=== PATIENT | female | born 1955 | race Caucasian/White ===

== ENCOUNTER 2017-06-11 18:48 | Emergency (ER) | payer BC, OTHER ==
[2017-06-11 19:04] VITALS: BP 121/70; PULSE 81; TEMP 98.1; BMI 19.1
--- NOTE | 2017-06-11 19:15 | PDOC ---
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 She denies feeling dizzy prior to falling. She denies head trauma or LOC. She reports inverting her right ankle and developing immediate swelling and pain. She reports the pain is sharp, 7/10 and radiating from her lateral ankle up her right lower extremity. She denies taking anything for pain prior to ED arrival. The patient denies chest pain, shortness of breath, headache and dizziness. The patient denies fever, chills, nausea, vomit, diarrhea and constipation. The patient denies dysuria, frequency, urgency and hematuria. PAST MEDICAL HISTORY: no significant history PAST SURGICAL HISTORY: no significant history FAMILY HISTORY: no pertinent history SOCIAL HISTORY: Pt lives with family and is employed. MEDICATIONS: reviewed ALLERGIES: As per nursing notes Adult ROS General: No fevers or chills, no weakness, no weight loss HEENT: No change in vision. No sore throat,. No ear pain CardioVascular: No chest pain or shortness of breath Respiratory:No cough, or wheezing. Gastrointestinal: no nausea, vomiting, diarrhea or constipation, No rectal bleeding Genitourinary: No dysuria, hematuria, or frequency Musculoskeletal: (+) pain to right ankle with bruising and swelling. Neurologic: No headache, vertigo, dizziness or loss of consciousness Psychiatric: nor depression Skin: No rashes or easy bruising Endocrine: no increased thirst or abnormal weight change Allergic: no skin or latex allergy All other systems reviewed and normal Adult Exam: GENERAL: The patient is awake, alert, and fully oriented, in no acute distress. HEAD: Normal with no signs of trauma. EYES: Pupils equal, round and reactive to light, extraocular movements intact, sclera anicteric, conjunctiva clear. EXTREMITIES: (+) Swelling with ecchymosis over the lateral malleolus with tenderness diffusely of ligaments and lateral malleolus. No tenderness at base of 5th metatarsal. No tenderness of the bones of the foot. Neurovascularly intact. Remainder of extremities are normal. NEUROLOGICAL: Normal speech, PSYCH: Normal mood, normal affect. SKIN: Warm, Dry, normal turgor, no rashes or lesions noted. <Lyn Falcon - Last Filed: 06/11/17 20:11> - General History Source: Patient Exam Limitations: No Limitations - History of Present Illness Initial Comments: A portion of this note was documented by scribe services under my direction. I have reviewed the details of the note, within reason, and agree with the documentation. The case summary and management plan written by me. X-ray no acute fracture dislocation 06/11/17 20:32 Assessment and plan: This is a 61-year-old female who twisted her right ankle while ambulation patient said she has some balance difficulty secondary to poor vision. Patient's ankle was markedly swollen laterally secondary to medication Plavix that she is on Patient's x-ray was negative for any acute pathology Patient's ankle was Neal wrapped she was given crutches for ambulation A prescription for a few Percocet were sent to her pharmacy for pain patient given referral to an orthopedist and discharged home with her <Carmelo Sanz I - Last Filed: 06/11/17 20:34> - General Chief Complaint: Injury Stated Complaint: RT ANKLE INJURY Time Seen by Provider: 06/11/17 19:11 Past History <Lyn Falcon - Last Filed: 06/11/17 20:11> - Past Medical History Cardiac Disorders: Yes (M.I. with cardiac stent x1 (5 years ago)) COPD: No GI Disorders: Yes (IBS) Hypercholesterolemia: Yes Thyroid Disease: Yes Other medical history: LUPUS - Suicide/Smoking/Psychosocial Hx Smoking History: Never smoked Have you smoked in the past 12 months: No Hx Alcohol Use: No Drug/Substance Use Hx: No Substance Use Type: None <Carmelo Sanz I - Last Filed: 06/11/17 20:34> - Past Medical History Allergies/Adverse Reactions: Allergies Allergy/AdvReac Type Severity Reaction Status Date / Time No Known Allergies Allergy Verified 06/11/17 18:49 Home Medications: Ambulatory Orders Aspirin [ASA -] 81 mg PO DAILY 05/01/13 Atorvastatin Ca [Lipitor -] 40 mg PO HS 05/01/13 Clopidogrel Bisulfate [Plavix -] 75 mg PO DAILY 05/01/13 Levothyroxine [Synthroid -] 75 mcg PO DAILY 05/01/13 Metoprolol Tartrate [Lopressor -] 25 mg PO DAILY 05/01/13 Hydroxyzine HCl 150 mg PO BID 06/11/17 Oxycodone HCl/Acetaminophen [Percocet 5-325 mg Tablet] 1 tab PO Q6H PRN #10 tab MDD 4 06/11/17 *Physical Exam - Vital Signs Last Vital Signs Temp Pulse Resp BP Pulse Ox 98.1 F 81 18 121/70 98 06/11/17 18:48 06/11/17 18:48 06/11/17 18:48 06/11/17 18:48 06/11/17 18:48 <Lyn Falcon - Last Filed: 06/11/17 20:11> - Vital Signs Last Vital Signs Temp Pulse Resp BP Pulse Ox 98.1 F 81 18 121/70 98 06/11/17 18:48 06/11/17 18:48 06/11/17 18:48 06/11/17 18:48 06/11/17 18:48 <Carmelo Sanz I - Last Filed: 06/11/17 20:34> ED Treatment Course - Medications Given in the ED: ED Medications Discontinued Medications Generic Name Dose Route Start Last Admin Trade Name Freq PRN Reason Stop Dose Admin Ketorolac Tromethamine 60 mg 06/11/17 19:25 06/11/17 19:33 Toradol Injection - IM 06/11/17 19:26 60 mg ONCE ONE Administration <Lyn Falcon - Last Filed: 06/11/17 20:11> *DC/Admit/Observation/Transfer - Attestations Scribe Attestion: 06/11/17 20:11 Documentation prepared by Lyn Falcon, acting as medical surgery nurse for Carmelo Sanz MD <Lyn Falcon - Last Filed: 06/11/17 20:11> <Carmelo Sanz I - Last Filed: 06/11/17 20:34> Diagnosis at time of Disposition: Moderate right ankle sprain Qualifiers: Encounter type: initial encounter Qualified Code(s): S93.401A - Sprain of unspecified ligament of right ankle, initial encounter - Discharge Dispostion Disposition: HOME Condition at time of disposition: Stable - Prescriptions Prescriptions: Oxycodone HCl/Acetaminophen [Percocet 5-325 mg Tablet] 1 tab PO Q6H PRN #10 tab MDD 4 PRN Reason: Pain - Referrals Referrals: Julius Ortiz MD [Primary Care Provider] - - Patient Instructions Additional Instructions: Rest the ankle as much as possible, ice the ankle 20-30 minutes at a time 3-4 times a day for the next 3 days, elevate the ankle as much as possible. Wear the Neal wrap. For pain take 2 extra strength Tylenol, if you need something stronger you can take 1 Percocet as often as every 6 hours try to limit the Percocet to the nighttime hours or if you do take it it will cause drowsiness and affect her balance and ability to walk so make sure someone is with you to assist you if you need them. Follow-up with an orthopedist if you need an orthopedist call Dr. Rabago at [phone] for an appointment. Return to the emergency department immediately with ANY new, persistent or worsening symptoms. Continue any medications as previously prescribed by your physician. You should follow up with your primary doctor as soon as possible regarding today's emergency department visit. . Please make sure your doctor reviews the results of your emergency evaluation. Thank you for coming to the Emergency Department today for your care. It was a pleasure to see you today. Please note that your evaluation is INCOMPLETE until you follow-up with your doctor. - Post Discharge Activity
[2017-06-11] MEDS ORDERED: KETOROLAC TROMETHAMINE 60 MG/2 ML VIAL IM ONE (19:25)
[2017-06-11] MEDS ORDERED: KETOROLAC TROMETHAMINE 60 MG/2 ML VIAL ONE (19:28)
== END 2017-06-11 20:15 | disposition home or self-care (01) ==
LOC: FER 18:48
PROC: 3E0233Z Introduction of Anti-inflammatory into Muscle, Percutaneous Approach (ICD-10-PCS; principal; 2017-06-11)
DX: S93.401A Sprain of unspecified ligament of right ankle, initial encounter (principal); X58.XXXA Exposure to other specified factors, initial encounter; Y93.89 Activity, other specified; Y92.9 Unspecified place or not applicable; I25.2 Old myocardial infarction; K58.9 Irritable bowel syndrome, unspecified; E07.9 Disorder of thyroid, unspecified; M32.9 Systemic lupus erythematosus, unspecified; E78.00 Pure hypercholesterolemia, unspecified
CPT/HCPCS: 73610-TC-RT-FY; 73630-TC-RT-FY; 99283-25

== ENCOUNTER 2020-10-07 11:05 | Emergency (ER) | payer BC, OTHER ==
[2020-10-07] MEDS ORDERED: DIPHTH,PERTUSS(ACELL),TET 0.5 ML DISP.SYRIN IM ONE ×2 (11:18→11:23)
[2020-10-07 11:19] VITALS: BP 135/72; PULSE 77; TEMP 98.1; BMI 17.6
[2020-10-07] MEDS ORDERED: ACETAMINOPHEN 325 MG TABLET (FP) PO ONE (12:44)
[2020-10-07] MEDS ORDERED: ACETAMINOPHEN 325 MG TABLET (FP) ONE (12:58)
== END 2020-10-07 13:00 | disposition home or self-care (01) ==
LOC: FER 11:05
PROC: 3E0234Z Introduction of Serum, Toxoid and Vaccine into Muscle, Percutaneous Approach (ICD-10-PCS; principal; 2020-10-07)
DX: S09.90XA Unspecified injury of head, initial encounter (principal); S01.111A Laceration without foreign body of right eyelid and periocular area, initial encounter
CPT/HCPCS: 70450-TC; 70486-TC; 72125-TC; 90715; 99285-25